=== PATIENT | female | born 1955 | race Caucasian/White ===

== ENCOUNTER 2020-01-22 06:19 | Outpatient (CLI) | payer BC ==
[2020-01-22 10:24] LABS: #Eosinphils 0.1 thou/uL (0.0-0.7); #Lymphocytes 1.1 thou/uL (1.20-3.40); #Monocytes 0.4 thou/uL (0.11-0.59); #Neutrophils 3.9 thou/uL (1.40-6.50); %Basophils 0.6 % (0.0-1.0); %Eosinophils 1.3 % (0.0-10.0); %Lymphocytes 20.1 % (21.0-51.0); %Monocytes 7.2 % (0.0-10.0); %Neutrophils 70.8 % (42.0-75.0); Hemoglobin 13.6 g/dL (12.0-16.0); Mean Corpuscular HGB CONC 33.6 g/dL (32.0-36.0); Mean Corpuscular Hemoglobin 33.2 pg (27.0-31.0); Mean Corpuscular Volume 98.9 fL (78.0-98.0); Mean Platelet Volume 8.6 fL (7.4-10.4); Platelet Count 194 thou/uL (130-400); White Blood Cell (WBC) Count 5.5 thou/uL (4.8-10.8)
== END 2020-01-22 06:20 | disposition home or self-care (01) ==
LOC: LABBT 06:19
PROVIDERS: ATTEND Orthopaedic Surgery Hand Surgery
DX: Z01.812 Encounter for preprocedural laboratory examination (principal); M65.342 Trigger finger, left ring finger
CPT/HCPCS: 85025

== ENCOUNTER 2020-01-26 05:39 | Day surgery (SDC) | payer BC ==
[2020-01-22 08:58] VITALS: BMI 21.5
[2020-01-26] MEDS ORDERED: Clindamycin/D5W 600 mg/50 ml Premix Bag ONE (05:50)
[2020-01-26] MEDS ORDERED: Fentanyl 100 MCG/2 ML VIAL ONE (06:15)
[2020-01-26] MEDS ORDERED: Bacitracin Zinc Ointment 30 gm TUBE ONE (06:22)
[2020-01-26] MEDS ORDERED: Bupivacaine PF 0.5% 30 ML VIAL ONE (06:22)
[2020-01-26] MEDS ORDERED: Betamet Acet/Betamet Na Ph 30 MG/5 ML VIAL ONE (06:50)
--- NOTE | 2020-01-26 09:01 | OP ---
DATE OF PROCEDURE: 01/26/2020 PREOPERATIVE DIAGNOSIS: Left ring finger kitty trigger with tenosynovitis. FINDINGS: Marked tenosynovium with tight A1 kitty, ring finger, left hand. PROCEDURES PERFORMED: 1. Left ring finger trigger digit release. 2. Left ring finger radical flexor tenosynovectomy. SPECIMEN: Flexor tenosynovium sample. ESTIMATED BLOOD LOSS: Less than or equal to 5 mL. TOURNIQUET TIME: 12 minutes. INJECTABLE: 1. One 10 mL of 0.5% Marcaine, 5 given before the procedure and 5 given after wound closure. 2. Drip of 4 mL of Celestone along the tendon sheath area. DESCRIPTION OF PROCEDURE: After successful general endotracheal anesthesia, the patient then had the time-out confirmed, we injected 5 mL along a longitudinal V Valarie type incision, centered on the flexion crease for the MP joint. We exsanguinated the limb and inflated the tourniquet to 250 mmHg pressure. We entered this incision with a knife. Then, after the dermis was opened with Blackfeet blade and then we found a very thick tenosynovium proximal to the A1 kitty. We released the A1 kitty with direct visualization and retraction, protected the neurovascular bundle with a Blackfeet blade. We used tenotomy scissors to separate it. We lifted up the tendon, it sounds very thick. There was no mass or ganglion deep. We performed a radical flexor tenosynovectomy of the flexor digitorum profundus and superficialis, a sample of which was sent to the lab for specimen. We irrigated the area with 4 mL of Celestone, released the tourniquet, obtained hemostasis. We closed the wound with interrupted 4-0 nylon in a horizontal mattress pattern, applied a bulky dressing, just before that we gave the last 5 mL of Marcaine. The patient left the operating room without evidence of anesthetic or operative complication. Job ID: [id number]
[2020-01-26] MEDS ORDERED: Dexamethasone 20 MG/5 ML VIAL ONE (09:23)
[2020-01-26] MEDS ORDERED: EPHEDRINE 25 MG/5 ML SYRINGE ONE (09:23)
[2020-01-26] MEDS ORDERED: Ketorolac Tromethamine 30 MG/ML VIAL ONE (09:23)
[2020-01-26] MEDS ORDERED: PROPOFOL 200 MG/20 ML VIAL ONE (09:23)
[2020-01-26] MEDS ORDERED: Lidocaine 1% PF 5 ML VIAL ONE (09:23)
[2020-01-26] MEDS ORDERED: Ondansetron PF 4 MG/2 ML Vial ONE (09:23)
== END 2020-01-26 09:50 | disposition home or self-care (01) ==
LOC: SDC 05:39
PROVIDERS: ATTEND Orthopaedic Surgery Hand Surgery
PROC: 0LB80ZZ Excision of Left Hand Tendon, Open Approach (ICD-10-PCS; principal; 2020-01-26)
DX: M65.342 Trigger finger, left ring finger (principal); M65.842 Other synovitis and tenosynovitis, left hand; I10 Essential (primary) hypertension; K21.9 Gastro-esophageal reflux disease without esophagitis; Z79.899 Other long term (current) drug therapy; Z88.0 Allergy status to penicillin; Z88.1 Allergy status to other antibiotic agents; Z88.2 Allergy status to sulfonamides
CPT/HCPCS: 88305; 93005; 93010; J0702; J3010; J3490; S0020

== ENCOUNTER 2025-07-30 12:03 | Emergency (ER) | payer BC, MEDICARE ==
[~2025-07-30 12:03] MED LIST: Iopamidol-370 76% 500 ML MDV (1 ML CHARGE) ONE
[2025-07-30 13:13] LABS: Bacteria/HPF None Seen HPF (None Seen); CAUTI Indications for Culture Acute Hematuria; Glucose, Urine (Dipstick) Normal (Negative); Leukocyte Negative Leu/uL (Negative); Protein, Urine (Dipstick) 10 mg/dL (Neg-Trace); RBC/HPF 0-3 HPF (0-3); Specific Gravity, Urine 1.018 (1.002-1.036); WBC/HPF 0-3 HPF (0-3)
[2025-07-30 13:16] LABS: Urine Culture Reflex No No
[2025-07-30 13:17] LABS: #Basophils 0.04 10x3/uL (0.0-0.2); #Eosinophils Less than 0.03 10x3/uL (0.0-0.7); #Monocytes 0.59 10x3/uL (0.11-0.59); #Neutrophils 13.07 10x3/uL (1.40-6.50); %Basophils 0.3 % (0.0-1.0); %Eosinophils 0.0 % (0.0-10.0); %Lymphocytes 3.0 % (21.0-51.0); %Monocytes 4.2 % (0.0-10.0); %Neutrophils 92.1 % (42.0-75.0); Hematocrit 37.5 % (36.0-47.0); Hemoglobin 12.5 g/dL (12.0-16.0); Mean Corpuscular Hemoglobin 32.3 pg (27.0-31.0); Mean Corpuscular Volume 96.9 fL (78.0-98.0); Platelet Count 181 10x3/uL (130-400); Red Blood Cell (RBC) Count 3.87 mill/uL (4.20-5.40); White Blood Cell (WBC) Count 14.18 10x3/uL (4.8-10.8)
[2025-07-30 13:36] LABS: ALT (SGPT) 22 U/L (Less than 34); AST (SGOT) 27 U/L (11-34); Albumin 4.5 g/dL (3.1-4.5); Alkaline Phosphatase 42 U/L (40-110); Anion Gap 12 mmol/L (10-20); BUN (Urea Nitrogen) 8 mg/dL (9.8-20.1); Bilirubin, Total 2.0 mg/dL (0.3-1.2); Calc. Creatinine Clearance 0 mL/min (70-130); Calcium 9.3 mg/dL (7.8-10.44); Carbon Dioxide 25 mmol/L (23-31); Chloride 97 mmol/L (98-107); Globulin 2.9 g/dL (2.4-3.5); Glucose 125 mg/dL (80-115); Lipase 11 U/L (8-78); Magnesium 2.0 mg/dL (1.6-2.6); Potassium 4.0 mmol/L (3.5-5.1); Sodium 130 mmol/L (136-145)
[2025-07-30] MEDS ORDERED: Ketorolac Tromethamine 30 MG (1 mL) VIAL ONE (14:01)
[2025-07-30] MEDS ORDERED: Ondansetron PF 4 MG/2 ML Vial ONE (14:01)
[2025-07-30] MEDS ORDERED: Amoxicillin/Potassium Clav 875 MG TAB ONE (16:23)
== END 2025-07-30 16:31 | disposition home or self-care (01) ==
LOC: ERS 12:03
DX: K52.9 Noninfective gastroenteritis and colitis, unspecified (principal); E80.6 Other disorders of bilirubin metabolism; N83.292 Other ovarian cyst, left side; N28.1 Cyst of kidney, acquired; E87.1 Hypo-osmolality and hyponatremia; I10 Essential (primary) hypertension
CPT/HCPCS: 74177; 80053; 81001; 83690; 83735; 85025; 93005; J1885; J2405; J2919; 96361; 96372; 96374; 96375; Q9967